=== PATIENT | male | born 1985 | race Caucasian/White ===

== ENCOUNTER 2024-03-24 13:16 | Outpatient (CLI) | payer OTHER ==
--- NOTE | 2024-03-24 13:58 | XRAY Report ---
PROCEDURE: Knee 3V RT INDICATIONS: RIGHT KNEE PAIN TECHNIQUE: 3 views of the knee(s) were acquired. COMPARISON: None. FINDINGS: Bones: No fractures or dislocations. No suspicious bony lesions. No significant degenerative hilario e. Soft tissues: Moderate knee joint effusion. No suspicious soft tissue calcifications or masses. IMPRESSION: 1. No evidence for acute osseous abnormality involving the patient's right knee. 2. Moderate size knee joint effusion. Reviewed by: Joseph Valencia MD on 03/24/2024 1:57 PM PDT Approved by: Joseph Valencia MD on 03/24/2024 1:57 PM PDT Station ID: [id number]
--- NOTE | 2024-03-24 13:59 | XRAY Report ---
PROCEDURE: Ankle 3+V LT INDICATIONS: SPRAIN OF CALCANEOFIBULAR LIGAMENT LEFT TECHNIQUE: 3 views of the ankle were acquired. COMPARISON: None. FINDINGS: Bones: No fractures or dislocations. Ankle mortise is normally aligned. No suspicious bony lesions . There is degenerative change Soft tissues: No tibiotalar joint effusion. Achilles tendon appears normal. IMPRESSION: No acute bony abnormality. Reviewed by: Joseph Valencia MD on 03/24/2024 1:58 PM PDT Approved by: Joseph Valencia MD on 03/24/2024 1:58 PM PDT Station ID: [id number]
== END 2024-03-24 13:17 | disposition home or self-care (01) ==
LOC: DI 13:16
PROVIDERS: ATTEND Physician Assistant
DX: M25.561 Pain in right knee (principal); M25.461 Effusion, right knee; S93.412A Sprain of calcaneofibular ligament of left ankle, initial encounter